=== PATIENT | female | born 1955 | race Caucasian/White ===

== ENCOUNTER 2016-07-27 08:18 | Day surgery (SDC) | payer OTHER ==
[~2016-07-27] VITALS: Ht 160 cm; Wt 81.6 kg
[~2016-07-27 08:18] MED LIST: ALEVE220 MG PO; ALLEGRA ALLERG180 MG PO; BISOPROLOL FUMAR5 MG PO; GLUCOPHAGE1000 MG PO; LO-DOSE ASPIRIN81 M2 PO; LYRICA150 MG PO; OMEGA 3 500 SO1 EACH PO; POTASSIUM GLUCO2 MEQ PO; ZESTORETIC 20-1 EAC2 PO; ZETIA10 MG PO
[2016-07-27 09:34] LABS: POINT-OF-CARE METER ID UU14174212
== END 2016-07-27 10:40 | disposition home or self-care (01) ==
LOC: PAIN 08:18 → SDC 09:30 → PAIN 09:30
PROVIDERS: Anesthesiology Pain Medicine
DX: M47.26 Other spondylosis with radiculopathy, lumbar region (principal); F41.9 Anxiety disorder, unspecified; G62.9 Polyneuropathy, unspecified; G89.29 Other chronic pain; M54.5 Low back pain; E11.9 Type 2 diabetes mellitus without complications; Z87.891 Personal history of nicotine dependence; K21.9 Gastro-esophageal reflux disease without esophagitis; E78.5 Hyperlipidemia, unspecified; I10 Essential (primary) hypertension; E66.9 Obesity, unspecified; M19.90 Unspecified osteoarthritis, unspecified site; Z82.49 Family history of ischemic heart disease and other diseases of the circulatory system; Z80.0 Family history of malignant neoplasm of digestive organs; Z88.8 Allergy status to other drugs, medicaments and biological substances
CPT/HCPCS: 80048; 82948; 93005; J1030; J2250; J3010; S0020

== ENCOUNTER 2016-08-03 08:52 | Day surgery (SDC) | payer OTHER ==
[~2016-08-03] VITALS: Ht 160 cm; Wt 81.6 kg
[2016-08-03 10:05] LABS: POINT-OF-CARE METER ID UU14174212
== END 2016-08-03 10:37 | disposition home or self-care (01) ==
LOC: PAIN 08:52 → SDC 09:30 → PAIN 09:30
PROVIDERS: Anesthesiology Pain Medicine
DX: M47.26 Other spondylosis with radiculopathy, lumbar region (principal); M54.5 Low back pain; G89.29 Other chronic pain; I10 Essential (primary) hypertension; E11.42 Type 2 diabetes mellitus with diabetic polyneuropathy; K21.9 Gastro-esophageal reflux disease without esophagitis; E66.3 Overweight; Z68.30 Body mass index [BMI] 30.0-30.9, adult; Z79.84 Long term (current) use of oral hypoglycemic drugs; Z87.891 Personal history of nicotine dependence; Z82.49 Family history of ischemic heart disease and other diseases of the circulatory system; Z80.0 Family history of malignant neoplasm of digestive organs
CPT/HCPCS: 82948; J1030; J2250; J2405; J3010; S0020